=== PATIENT | female | born 1995 | race American Indian/Alaskan Native ===

== ENCOUNTER 2023-08-17 10:05 | Emergency (ER) | payer MEDICAID ==
[~2023-08-17] VITALS: Ht 175.3 cm; Wt 130.3 kg
[2023-08-17] MEDS ORDERED: metoclopramide 5 mg/ml inj IM ONE (11:00)
[2023-08-17] MEDS ORDERED: diphenhydrAMINE 50 mg/ml inj IM ONE (11:00)
[2023-08-17] MEDS ORDERED: ondansetron 4mg rapidly disintigrating tab PO ONE (11:05)
[2023-08-17] MEDS ORDERED: HYDROcodone/acetaminophen 5mg/325mg tablet PO ONE (11:05)
[2023-08-17 12:23] VITALS: BP 113/65; PULSE 71; RESP 16; TEMP 98.4; O2SAT 96
== END 2023-08-17 12:25 | disposition home or self-care (01) ==
LOC: ER 10:05
DX: G43.909 Migraine, unspecified, not intractable, without status migrainosus (principal)
CPT/HCPCS: 70450; 96372; 99285; J1200; J2765